=== PATIENT | male | born 1960 | race Caucasian/White ===

== ENCOUNTER 2021-07-20 10:47 | Day surgery (SDC) | payer BC ==
[2021-07-19 15:10] VITALS: BMI 23.6
[~2021-07-20 10:47] MED LIST: EPINEPHrine 0.3 MG in Ophthalmic Irrigation Solution 500 ML IRR SCH; Fentanyl 100 MCG/2 ML VIAL ONE; Midazolam HCl 2 mg/2 ml Vial ONE
[2021-07-20] MEDS ORDERED: Cyclopentolate 1% Opth Drop 2 ML BOT ONE (11:19)
[2021-07-20] MEDS ORDERED: Phenylephrine 2.5% Ophth Soln 5 ML BOT ONE (11:19)
[2021-07-20] MEDS ORDERED: Maxitrol 0.1% Opth Oint 3.5 GM TUBE ONE (12:55)
[2021-07-20] MEDS ORDERED: PROPOFOL 200 MG/20 ML VIAL ONE (12:55)
[2021-07-20] MEDS ORDERED: Lidocaine 1% PF 5 ML VIAL ONE (12:55)
[2021-07-20] MEDS ORDERED: Triamcinolone 40 MG/ML VIAL ONE (12:55)
[2021-07-20] MEDS ORDERED: CEFAZOLIN 1 GM VIAL ONE (12:55)
[2021-07-20] MEDS ORDERED: Lidocaine 4% PF 5 ML AMP ONE (12:55)
[2021-07-20] MEDS ORDERED: Bupivacaine PF 0.75% SDV 10 ML ONE (12:55)
== END 2021-07-20 14:45 | disposition home or self-care (01) ==
LOC: SDC 10:47
PROVIDERS: ATTEND Ophthalmology Retina Specialist
PROC: 08T43ZZ Resection of Right Vitreous, Percutaneous Approach (ICD-10-PCS; principal; 2021-07-20)
PROC: 08QE3ZZ Repair Right Retina, Percutaneous Approach (ICD-10-PCS; principal; 2021-07-20)
DX: H33.021 Retinal detachment with multiple breaks, right eye (principal); G89.4 Chronic pain syndrome; Z85.46 Personal history of malignant neoplasm of prostate; Z86.16 Personal history of COVID-19; Z79.899 Other long term (current) drug therapy; Z88.0 Allergy status to penicillin; Z98.1 Arthrodesis status
CPT/HCPCS: 67025; J0171; J0690; J2250; J2704; J3010; J3301; J3490

== ENCOUNTER 2022-09-06 13:30 | Emergency (ER) | payer BC ==
[2022-09-06] MEDS ORDERED: Iopamidol-370 76% 500 ML 1 ML ONE (13:38)
[2022-09-06] MEDS ORDERED: Ondansetron PF 4 MG/2 ML Vial ONE (14:07)
[2022-09-06] MEDS ORDERED: Dicyclomine 20 MG TAB ONE (14:07)
[2022-09-06 14:46] LABS: #Eosinphils 0.1 thou/uL (0.0-0.7); #Lymphocytes 1.4 thou/uL (1.20-3.40); #Monocytes 1.4 thou/uL (0.11-0.59); #Neutrophils 11.9 thou/uL (1.40-6.50); %Basophils 0.3 % (0.0-1.0); %Eosinophils 0.3 % (0.0-10.0); %Lymphocytes 9.3 % (21.0-51.0); %Monocytes 9.6 % (0.0-10.0); %Neutrophils 80.5 % (42.0-75.0); Hemoglobin 14.1 g/dL (14.0-18.0); Mean Corpuscular HGB CONC 33.1 g/dL (32.0-36.0); Mean Corpuscular Hemoglobin 32.2 pg (27.0-31.0); Mean Corpuscular Volume 97.3 fl (78.0-98.0); Mean Platelet Volume 8.5 fL (7.4-10.4); Platelet Count 202 10x3/uL (130-400); RBC Distribution Width 12.2 % (11.5-14.5); Red Blood Cell (RBC) Count 4.39 mill/uL (4.70-6.10); White Blood Cell (WBC) Count 14.8 10x3/uL (4.8-10.8)
[2022-09-06 15:02] LABS: ALT (SGPT) 10 U/L (8-55); AST (SGOT) 13 U/L (5-34); Albumin 3.6 g/dL (3.4-4.8); Alkaline Phosphatase 60 U/L (40-110); Anion Gap 11 mmol/L (10-20); BUN (Urea Nitrogen) 13 mg/dL (8.4-25.7); Bilirubin, Total 1.3 mg/dL (0.2-1.2); Calc. Creatinine Clearance 0 mL/min (70-130); Calcium 8.7 mg/dL (7.8-10.44); Carbon Dioxide 28 mmol/L (23-31); Chloride 105 mmol/L (98-107); Estimated GFR 100; Globulin 2.7 g/dL (2.4-3.5); Glucose 104 mg/dL (80-115); Lipase 6 U/L (8-78); Potassium 3.8 mmol/L (3.5-5.1); Protein, Total 6.3 g/dL (5.8-8.1); Sodium 140 mmol/L (136-145)
== END 2022-09-06 17:34 | disposition home or self-care (01) ==
LOC: ERS 13:30
DX: K52.9 Noninfective gastroenteritis and colitis, unspecified (principal)
CPT/HCPCS: 36415; 74177; 80053; 83605; 83690; 85025; 86850; 86900; 86901; 87324; 87449; 93005; 96374; J2405; Q9967

== ENCOUNTER 2023-09-14 15:26 | Day surgery (SDC) | payer BC ==
[~2023-09-14 15:26] MED LIST changes: -Fentanyl 100 MCG/2 ML VIAL ONE; -Midazolam HCl 2 mg/2 ml Vial ONE
[2023-09-14] MEDS ORDERED: Phenylephrine 2.5% Ophth Soln 5 ML BOT FS SCH (16:00)
[2023-09-14] MEDS ORDERED: Cyclopentolate 1% Opth Drop 2 ML BOT FS SCH (16:00)
[2023-09-14] MEDS ORDERED: PROPOFOL 20 ML ONE (17:00)
[2023-09-14] MEDS ORDERED: Lidocaine 2% PF 5 ML VIAL ONE (17:00)
[2023-09-14] MEDS ORDERED: Triamcinolone 40 MG/ML VIAL ONE (17:21)
[2023-09-14] MEDS ORDERED: Maxitrol 0.1% Opth Oint 3.5 GM TUBE ONE (17:21)
[2023-09-14] MEDS ORDERED: Lidocaine 4% PF 5 ML AMP ONE (17:21)
[2023-09-14] MEDS ORDERED: Bupivacaine 0.75% 10 ML VIAL ONE (17:21)
== END 2023-09-14 18:50 | disposition home or self-care (01) ==
LOC: SDC 15:26
PROVIDERS: ATTEND Ophthalmology Retina Specialist
PROC: 08T53ZZ Resection of Left Vitreous, Percutaneous Approach (ICD-10-PCS; principal; 2023-09-14)
DX: H33.002 Unspecified retinal detachment with retinal break, left eye (principal); Z88.0 Allergy status to penicillin
CPT/HCPCS: 67025; J0171; J2001; J2704; J3301; J3490